=== PATIENT | male | born 1960 | race Caucasian/White ===

== ENCOUNTER 2018-04-20 03:55 | Emergency (ER) | payer SELFPAY ==
[~2018-04-20] VITALS: Ht 182.9 cm; Wt 77.1 kg
[2018-04-20 03:55] VITALS: BP 108/74
--- NOTE | 2018-04-20 04:15 | NUR ---
PT PROVIDED W/ WATER AND SNACKS FROM [facility], PT STATES HE DOES NOT HAVE TO URINATE AT THIS TIME, WILL FOLLOW UP.
--- NOTE | 2018-04-20 04:16 | NUR ---
PT BIBA FOR C/O DIZZINESS, PER [facility] PT IS ALOC. PT IS AWAKE, AMBULATORY, RR EVEN AND UNLABORED. PT APPEARS TO BE IN NO ACUTE DISTRESS AT THIS TIME. PT HAS NO VISIBLE WOUNDS OR TRAUMA. PT STATES HIS NAME IS "BENJAMIN" BUT HAS HOSPITAL BAND AND D/C PAPERS THAT STATE MARBELLA THOMAS FROM [facility], PT HAS NO OTHER ID ON HIS PERSON OR POSSESSION. PT IS DISHEVLED, DIRTY, HAS NO SHIRT ON ON ARRIVAL TO ED. PT LAYING IN BED, SIDE RAILS UP X2, WILL CONTINUE TO MONITOR . UNABLE TO OBTAIN PMH OR DRUG ALLERGIES.
[2018-04-20 04:31] LABS: BASOPHILS % (AUTO) 0.5 % (0.0-2.0); EOSINOPHILS # (AUTO) 0.1 K/uL (0-0.4); EOSINOPHILS % (AUTO) 2.1 % (0.0-4.0); HEMATOCRIT 39.2 % (36-52); HEMOGLOBIN 13.2 g/dL (12.0-18.0); LYMPHOCYTES # (AUTO) 1.9 K/uL (2.0-11.5); LYMPHOCYTES % (AUTO) 29.2 % (20.5-51.1); MEAN CORPUSCULAR HEMOGLOBIN 29 pg (27-31); MEAN CORPUSCULAR HGB CONC 34 g/dL (33-37); MONOCYTES # (AUTO) 0.6 K/uL (0.8-1.0); NEUTROPHILS # (AUTO) 3.9 K/uL (1.8-7.7); NEUTROPHILS % (AUTO) 59.2 % (42.2-75.2); PLATELET COUNT (AUTO) 209 K/uL (140-450); RED BLOOD CELL COUNT(AUTO) 4.51 MIL/uL (4.20-6.10); RED CELL DISTRIBUTION WIDTH 14.2 % (11.6-13.7); WHITE BLOOD COUNT (AUTO) 6.6 K/uL (4.8-10.8)
[2018-04-20 04:45] LABS: ALBUMIN 3.3 g/dL (3.4-5.0); ANION GAP 5.8 (8-16); CARBON DIOXIDE 30.1 mmol/L (21-32); CREATININE 0.9 mg/dL (0.7-1.3); TOTAL BILIRUBIN 0.3 mg/dL (0.0-1.0)
--- NOTE | 2018-04-20 04:48 | NUR ---
Critical Lab taken and immediately reported to Dr. Yoder. Potassium 2.9
[2018-04-20 04:50] LABS: POTASSIUM 2.9 mmol/L (3.5-5.1)
[2018-04-20] MEDS ORDERED: POTASSIUM CHLORIDE 20% 40 MEQ/15 ML UDC PO ONE (04:50)
[2018-04-20] MEDS ORDERED: NACL 0.9% 1,000 ML IV ONE (04:50)
[2018-04-20 04:57] LABS: APPEARANCE,URINE SL CLOUDY (CLEAR); BILIRUBIN,URINE NEGATIVE (NEGATIVE); BLOOD, URINE NEGATIVE (NEGATIVE); COLOR,URINE YELLOW (YELLOW); LEUKOCYTE ESTERASE ,URINE NEGATIVE (NEGATIVE); NITRITE, URINE NEGATIVE (NEGATIVE); PH,URINE 6.5 (5.0-9.0); UGLUCOSE NEGATIVE (NEGATIVE)
[2018-04-20 05:10] LABS: BARBITURATE, URINE NEGATIVE ng/ml (NEG <=200); BENZODIAZEPINE, URINE NEGATIVE ng/mL (NEG <=200); COCAINE, URINE NEGATIVE ng/mL (NEG <=300)
[2018-04-20 05:11] LABS: CANNABINOID, URINE POSITIVE ng/mL (NEG <=50); OPIATE, URINE NEGATIVE ng/mL (NEG <=2000); PHENCYCLIDINE SCREEN,URINE NEGATIVE ng/mL (NEG <=25)
--- NOTE | 2018-04-20 05:45 | NUR ---
PT AMBULATED TO BATHROOM, EVEN STEADY GAIT.
--- NOTE | 2018-04-20 06:30 | NUR ---
Patient discharged with v/s stable. Written and verbal after care instructions given and explained. Patient verbalized understanding. Ambulatory with steady gait. All questions addressed prior to discharge. Advised to follow up with PMD. pt left d/c papers on er bed, pt states he lives at a house and does not want community resources paper.
[2018-04-20 06:40] VITALS: BP 103/72
== END 2018-04-20 06:30 | disposition home or self-care (01) ==
LOC: MED 03:55
DX: T67.5XXA Heat exhaustion, unspecified, initial encounter (principal); E86.0 Dehydration; E87.6 Hypokalemia; F15.90 Other stimulant use, unspecified, uncomplicated; E87.1 Hypo-osmolality and hyponatremia; F14.90 Cocaine use, unspecified, uncomplicated; Z59.0 Homelessness; X58.XXXA Exposure to other specified factors, initial encounter; Y93.89 Activity, other specified; Y92.89 Other specified places as the place of occurrence of the external cause; Y99.8 Other external cause status
CPT/HCPCS: 36415; 80053; 80305; 81003; 85025; 93005; 96360; 99285; J7030